=== PATIENT | female | born 1970 | race Caucasian/White ===

== ENCOUNTER 2018-08-06 19:54 | Emergency (ER) | payer OTHER, SELFPAY ==
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
[2018-08-06] MEDS ORDERED: HYDROcodone/Acetaminophen 10/325 mg Tablet ONE (21:28)
== END 2018-08-06 21:50 | disposition home or self-care (01) ==
LOC: ERS 19:54
DX: S20.219A Contusion of unspecified front wall of thorax, initial encounter (principal); S60.221A Contusion of right hand, initial encounter; M35.00 Sjogren syndrome, unspecified; V43.52XA Car driver injured in collision with other type car in traffic accident, initial encounter
CPT/HCPCS: 71046